=== PATIENT | female | born 1955 | race Caucasian/White ===

== ENCOUNTER → 2020-09-30 | Outpatient (CLI) | payer SELFPAY ==
--- NOTE | 2020-09-30 09:33 | Diagnostic Imaging Report ---
CT cardiac calcium scoring. Indication: History of smoking There are no prior studies available for comparison. Routine images of the heart were obtained using the CT cardiac calcium scoring protocol. The cardiac calcium score is 398.9 (please see attached report). The CT images show the heart size is within normal limits. There are coronary artery calcifications involving the left anterior descending, right coronary and left circumflex coronary arteries. There is no sign of a pericardial effusion. The lungs, where visualized, are generally clear. There is no sign of failure, pneumonia or pleural effusion and there is no parenchymal lung mass identified. The ascending aorta is not abnormally dilated. There is no obvious mediastinal or hilar adenopathy. The breasts, where visualized, show no sign of a mass lesion. The upper abdomen is also unremarkable for an acute abnormality. The bone windows show no sign of a fracture or of a destructive lesion. Impression: 1. The cardiac calcium score is 398.9. (Please see attached report.). 2. There is no acute abnormality identified. Dictated by: Dictated on workstation # [id number]
== END ==
LOC: RAD FS 08:20
PROVIDERS: ATTEND Family Medicine
DX: F17.200 Nicotine dependence, unspecified, uncomplicated (principal)
CPT/HCPCS: 75571

== ENCOUNTER 2021-01-22 15:05 | Emergency (ER) | payer MEDICARE, OTHER ==
[~2021-01-22] VITALS: Ht 167 cm; Wt 77.0 kg
--- NOTE | 2021-01-22 15:11 | ED EENT ---
History of Present Illness General Chief Complaint: Nasal Problems Stated Complaint: NOSE BLEED History of Present Illness Date Seen by Provider: Jan 22, 2021 Time Seen by Provider: 15:11 Initial Comments 65-year-old female presents with a nosebleed. Patient reports that the she had a small nosebleed yesterday then another 1 early this morning. That this round started about 30 minutes prior to arrival. That started on the left and then on of the right. Patient denies any trauma to the area. She never had problems with nosebleeds in the past. She is not on any blood thinners. Allergies and Home Medications Allergies Coded Allergies: No Known Drug Allergies (Unverified , 01/22/21) Patient Home Medication List Home Medication List Reviewed: Yes Review of Systems Review of Systems Constitutional: no symptoms reported Eyes: No Symptoms Reported Ears: No Symptoms Reported Nose: see HPI, epistaxis Mouth: no symptoms reported Throat: no symptoms reported Respiratory: no symptoms reported Cardiovascular: no symptoms reported Gastrointestinal: no symptoms reported Musculoskeletal: no symptoms reported Skin: no symptoms reported Neurological: No Symptoms Reported Hematologic/Lymphatic: No Symptoms Reported Immunological/Allergic: no symptoms reported Physical Exam Vital Signs Vital Signs - First Documented 01/22/21 15:05 Temp 36.3 Pulse 83 Resp 16 B/P (MAP) 180/77 (111) Pulse Ox 96 O2 Delivery Room Air Height, Weight, BMI Height: '" Weight: lbs. oz. kg; BMI Method: General Appearance: no apparent distress Nose: active bleeding Neck: non-tender, supple Cardiovascular: normal peripheral pulses, regular rate, rhythm Respiratory: chest non-tender, lungs clear, normal breath sounds Gastrointestinal: non tender, soft Neurologic/Psychiatric: alert, normal mood/affect, oriented x 3 Skin: normal color, warm/dry Progress/Results/Core Measures Results/Orders Lab Results Laboratory Tests Test 01/22/21 15:29 Range/Units White Blood Count 7.2 4.3-11.0 10^3/uL Red Blood Count 4.02 L 4.35-5.85 10^6/uL Hemoglobin 12.6 11.5-16.0 G/DL Hematocrit 36 35-52 % Mean Corpuscular Volume 91 80-99 FL Mean Corpuscular Hemoglobin 31 25-34 PG Mean Corpuscular Hemoglobin Concent 35 32-36 G/DL Red Cell Distribution Width 12.5 10.0-14.5 % Platelet Count 142 130-400 10^3/uL Mean Platelet Volume 12.1 H 7.4-10.4 FL Immature Granulocyte % (Auto) 0 % Neutrophils (%) (Auto) 49 42-75 % Lymphocytes (%) (Auto) 39 12-44 % Monocytes (%) (Auto) 7 0-12 % Eosinophils (%) (Auto) 5 0-10 % Basophils (%) (Auto) 0 0-10 % Neutrophils # (Auto) 3.4 1.8-7.8 X 10^3 Lymphocytes # (Auto) 2.8 1.0-4.0 X 10^3 Monocytes # (Auto) 0.5 0.0-1.0 X 10^3 Eosinophils # (Auto) 0.4 H 0.0-0.3 10^3/uL Basophils # (Auto) 0.0 0.0-0.1 10^3/uL Immature Granulocyte # (Auto) 0.0 0.0-0.1 10^3/uL Prothrombin Time 12.9 12.2-14.7 SEC INR Comment 0.9 0.8-1.4 Activated Partial Thromboplast Time 32 24-35 SEC Sodium Level 140 135-145 MMOL/L Potassium Level 4.0 3.6-5.0 MMOL/L Chloride Level 104 98-107 MMOL/L Carbon Dioxide Level 25 21-32 MMOL/L Anion Gap 11 5-14 MMOL/L Blood Urea Nitrogen 20 H 7-18 MG/DL Creatinine 0.67 0.60-1.30 MG/DL Estimat Glomerular Filtration Rate > 60 BUN/Creatinine Ratio 30 Glucose Level 145 H 70-105 MG/DL Calcium Level 9.6 8.5-10.1 MG/DL My Orders Orders - BENNETT,TODD L DO Oxymetazoline 0.05% Nasal [place] (Afrin 0. (01/22/21 21:00) Oxymetazoline 0.05% Nasal [place] (Afrin 0. (01/22/21 15:15) Basic Metabolic Panel (01/22/21 15:43) Cbc With Automated Diff (01/22/21 15:43) Protime With Inr (01/22/21 15:43) Partial Thromboplastin Time (01/22/21 15:43) Vital Signs/I&O 01/22/21 15:05 Temp 36.3 Pulse 83 Resp 16 B/P (MAP) 180/77 (111) Pulse Ox 96 O2 Delivery Room Air Progress Progress Note : Progress Note Patient nosebleed resolved here in the ER. Discussed with her that he is she continues Afrin to help control the breathing, had a direct pressure, she belie ves it might be due to some allergies and coughing and sneezing so recommended Nasacort or Flonase nasal spray. Patient's blood pressure is slightly elevated so I recommend she follow-up with her primary care provider for recheck to ensure that this is not an underlying cause. Patient is otherwise stable and discharged Departure Impression Primary Impression: Epistaxis Additional Impression: Elevated blood pressure reading Disposition: HOME, SELF-CARE Condition: Stable Departure-Patient Inst. Referrals: RUMA LAWRENCE MD (PCP/Family) Primary Care Physician Patient Instructions: Lowering Your Risk of High Blood Pressure, Prehypertension, Nosebleeds ED Add. Discharge Instructions: Follow-up with your primary care provider for recheck of your blood pressure Return to the ER as needed All discharge instructions reviewed with patient and/or family. Voiced understanding. TODD BENNETT DO Jan 22, 2021 15:11
[2021-01-22] MEDS ORDERED: OXYMETAZOLINE (AFRIN) 0.05% NA 30 ML BTL ONE (15:15)
[2021-01-22 15:52] LABS: BASOPHILS % (AUTO) 0 % (0-10); EOSINOPHILS # (AUTO) 0.4 10^3/uL (0.0-0.3); EOSINOPHILS % (AUTO) 5 % (0-10); HEMATOCRIT 36 % (35-52); HEMOGLOBIN 12.6 G/DL (11.5-16.0); LYMPHOCYTES # (AUTO) 2.8 X 10^3 (1.0-4.0); LYMPHOCYTES % (AUTO) 39 % (12-44); MEAN CORPUSCULAR HEMOGLOBIN 31 PG (25-34); MEAN CORPUSCULAR HGB CONC 35 G/DL (32-36); MEAN CORPUSCULAR VOLUME 91 FL (80-99); MEAN PLATELET VOLUME 12.1 FL (7.4-10.4); MONOCYTES # (AUTO) 0.5 X 10^3 (0.0-1.0); MONOCYTES % (AUTO) 7 % (0-12); NEUTROPHILS # (AUTO) 3.4 X 10^3 (1.8-7.8); NEUTROPHILS % (AUTO) 49 % (42-75); PLATELET COUNT 142 10^3/uL (130-400); WHITE BLOOD COUNT 7.2 10^3/uL (4.3-11.0)
[2021-01-22 15:56] LABS: INR 0.9 (0.8-1.4); PROTHROMBIN TIME PATIENT 12.9 SEC (12.2-14.7)
[2021-01-22 15:57] LABS: CALCIUM 9.6 MG/DL (8.5-10.1); CARBON DIOXIDE 25 MMOL/L (21-32); CHLORIDE 104 MMOL/L (98-107); SODIUM 140 MMOL/L (135-145)
[2021-01-22 15:58] LABS: GLUCOSE 145 MG/DL (70-105)
[2021-01-22 16:01] LABS: BUN/CREATININE RATIO 30; CREATININE SERUM 0.67 MG/DL (0.60-1.30); GFR ESTIMATED > 60
[2021-01-22 16:31] VITALS: BP 160/72
[2021-01-22] MEDS ORDERED: OXYMETAZOLINE (AFRIN) 0.05% NA 30 ML BTL SCH (21:00)
== END 2021-01-22 16:30 | disposition home or self-care (01) ==
LOC: EDUNIT# 15:05 → ER FS 15:07
DX: R04.0 Epistaxis (principal); R03.0 Elevated blood-pressure reading, without diagnosis of hypertension
CPT/HCPCS: 36415; 80048; 85025; 85610; 85730